=== PATIENT | male | born 1985 | race Caucasian/White ===

== ENCOUNTER 2017-08-01 08:40 | Day surgery (SDC) | payer OTHER ==
[~2017-08-01 08:40] MED LIST: CEFAZOLIN 2 GM/50 ML (PMX) 50 ML IVPB; PROPOFOL 200 MG INJ
[2017-08-01] MEDS ORDERED: MIDAZOLAM 1 MG/ML 2 ML INJ (09:27)
[2017-08-01] MEDS ORDERED: CEFAZOLIN 1 GM INJ (09:28)
[2017-08-01] MEDS ORDERED: LIDOCAINE 100 MG SYRINGE (09:28)
[2017-08-01] MEDS ORDERED: PROPOFOL 20 ML (09:28)
[2017-08-01] MEDS ORDERED: ROPIVACAINE 0.2% 20 ML VIAL ×2 (09:28→10:07)
[2017-08-01] MEDS ORDERED: ONDANSETRON 4 MG INJ (09:29)
[2017-08-01] MEDS ORDERED: DEXAMETHASONE 4 MG/ML 1 ML INJ ×2 (09:29→09:30)
[2017-08-01] MEDS ORDERED: EPINEPHrine 1 MG INJ (09:29)
[2017-08-01 10:00] LABS: ADD MAN DIFF? NO
[2017-08-01 10:06] LABS: WHITE BLOOD COUNT 9.8 10^3/ul (4.8-10.8)
[2017-08-01 10:06] LABS: BASOPHIL # 0.1 10^3/ul (0.0-0.1); BASOPHILS % 0.6 % (0.0-2.0); EOSINOPHILS # 0.5 10^3/ul (0.0-0.5); EOSINOPHILS % 5.2 % (0.0-7.0); HEMATOCRIT 46.7 % (42.0-52.0); HEMOGLOBIN 15.7 g/dl (14.0-18.0); LYMPHOCYTES # 3.2 10^3/ul (0.8-2.9); LYMPHOCYTES % 33.1 % (15.0-51.0); MEAN CORPUSCULAR HEMOGLOBIN 28.5 pg (29.0-33.0); MEAN CORPUSCULAR HGB CONC 33.6 g/dl (32.0-37.0); MEAN CORPUSCULAR VOLUME 84.9 fl (82.0-101.0); MEAN PLATELET VOLUME 11.2 fl (7.4-10.4); MONOCYTE # 0.7 10^3/ul (0.3-0.9); MONOCYTES % 7.4 % (0.0-11.0); NEUTROPHIL # 5.2 10^3/ul (1.6-7.5); NEUTROPHILS % 53.4 % (39.0-77.0); PLATELET COUNT 192 10^3/UL (140-415)
[2017-08-01] MEDS ORDERED: LIDOCAINE 2% (SDV) 5 ML INJ (10:08)
[2017-08-01 10:28] LABS: GLUCOSE 107 mg/dl (70-220)
[2017-08-01] MEDS ORDERED: ACETAMINOPHEN 1000MG/100ML IV 100 ML (10:55)
[2017-08-01] MEDS ORDERED: HYDROmorphONE (0.2 MG/ML) 10ML SYG IV ×2 (12:47→13:00)
[2017-08-01] MEDS ORDERED: FENTAnyl 50 MCG/ML VIAL IV ×2 (13:00)
[2017-08-01] MEDS: HYDROmorphONE (0.2 MG/ML) 10ML SYG IV (13:10)
[2017-08-01] MEDS: KETOROLAC 30 MG INJ IV (13:33)
[2017-08-01] MEDS: ONDANSETRON 4 MG INJ IV (13:33)
== END 2017-08-01 15:00 | disposition home or self-care (01) ==
LOC: SDS 08:40
DX: S82.851D Displaced trimalleolar fracture of right lower leg, subsequent encounter for closed fracture with routine healing (principal); X58.XXXD Exposure to other specified factors, subsequent encounter
CPT/HCPCS: 27822; 73610-RT; 82947; 85025